=== PATIENT | female | born 1950 | race Caucasian/White ===

== ENCOUNTER 2016-11-17 00:56 | Day surgery (SDC) | payer OTHER ==
[2016-11-15 16:33] VITALS: BP 126/72
[~2016-11-17] VITALS: Ht 160 cm; Wt 59.4 kg
[~2016-11-17 00:56] MED LIST: CYCL5TAB PO; GABA300C10 PO; HYDR-3014 PO; MELO7.5T5 PO
[2016-11-17] MEDS ORDERED: NS 1000ML 1,000 ML ONE (05:20)
[2016-11-17] MEDS ORDERED: NS 1000ML 1,000 ML IV SCH (09:00)
[2016-11-17] MEDS ORDERED: VERSED ONE (13:28)
[2016-11-17 13:37] VITALS: BP 135/74
[2016-11-17] MEDS ORDERED: DECADRON ONE (13:42)
[2016-11-17] MEDS ORDERED: LIDOCAINE 1% VIAL ONE (13:42)
[2016-11-17 14:15] VITALS: BP 98/66
[2016-11-17 14:30] VITALS: BP 114/66
[2016-11-17 14:45] VITALS: BP 103/67
[2016-11-17 15:00] VITALS: BP 111/73
[2016-11-17 15:15] VITALS: BP 104/68
--- NOTE | 2016-12-01 22:51 | OPH ---
DATE OF SURGERY: 11/17/2016 PROCEDURES: 1. Lumbar L4-L5 interlaminar epidural steroid injection. 2. Intraoperative lumbar epidurogram. 3. Needle fluoroscopic guidance. REASON FOR PROCEDURE: Lumbar degenerative disk disease with radiculopathy. PHYSICIAN: Vaishnavi Prajapati MD MEDICATIONS INJECTED: 6 mL of Decadron 24 mg and 3 mL sterile preservative-free normal saline. LOCAL ANESTHETIC INJECTED: 5 mL of 1% lidocaine. ANESTHESIA: MAC. ESTIMATED BLOOD LOSS: None. COMPLICATIONS: None. TECHNIQUE: Time-out was taken to identify the correct patient, procedure and site prior to starting the procedure. With the patient lying in prone position, the area was prepped and draped in the usual sterile fashion using DuraPrep and a fenestrated drape. The level above was determined using fluoroscopy. Local anesthetic was given using 27-gauge, 1.25-inch needle by raising skin wheal and going down to the hub. A 3.5-inch, 18-gauge Tuohy needle was introduced under intermittent fluoroscopic guidance. The needle was advanced to the ligamentum flavum using loss of resistance technique. Once the tip of the needle was thought to be in the desired position, Omnipaque 180 was injected to confirm only epidural spread, no vascular runoff. The injectable was then injected slowly. The procedure was completed without complication and tolerated well. The patient was monitored throughout the procedure. The patient was given postprocedure and discharge instructions to follow at home. The patient was discharged in stable condition. A followup appointment was made. PREPROCEDURE PAIN SCORE: /10. POSTPROCEDURE PAIN SCORE: 0/10. DIAGNOSTIC EPIDUROGRAM: DESCRIPTION OF PROCEDURE: The patient underwent lumbar epidural steroid injection today. The epidural was observed at the level L4-L5 under AP and lateral fluoroscopic guidance. 2 mL of Omnipaque 180 contrast was injected that evenly spread from level L3-S1 level with posterior anterior dye spread bilaterally at L4-L5 and L5-S1. There appeared to be mild degree of spondylosis noted at both levels. The intervertebral disk height at both levels was slightly less than normal. Neural foramen appeared to be patent. Vaishnavi Prajapati MD DR: DARLENE/byron JOB# [id number]
== END 2016-11-17 15:22 | disposition home or self-care (01) ==
LOC: SDC 00:56
PROVIDERS: ATTEND Anesthesiology
DX: M51.16 Intervertebral disc disorders with radiculopathy, lumbar region (principal)
CPT/HCPCS: 62323; J1100; J2001; J2250; J7030; Q9965; 62322; 77003